=== PATIENT | male | born 1985 | race Asian ===

== ENCOUNTER 2017-04-26 09:02 | Emergency (ER) | payer OTHER ==
[~2017-04-26] VITALS: Ht 167.6 cm; Wt 63.5 kg
== END 2017-04-26 09:36 | disposition home or self-care (01) ==
LOC: ED 09:02
DX: H61.22 Impacted cerumen, left ear (principal)
CPT/HCPCS: 99282

== ENCOUNTER 2017-05-08 14:57 | Emergency (ER) | payer OTHER ==
[~2017-05-08] VITALS: Ht 167.6 cm; Wt 63.5 kg
== END 2017-05-08 16:30 | disposition home or self-care (01) ==
LOC: ED 14:57
DX: H65.92 Unspecified nonsuppurative otitis media, left ear (principal); J30.9 Allergic rhinitis, unspecified
CPT/HCPCS: 99281